=== PATIENT | female | born 1960 ===

== ENCOUNTER 2018-05-26 08:01 | Day surgery (SDC) | payer MEDICAID ==
[2018-05-22 07:55] VITALS: BMI 29.1
[2018-05-26] MEDS ORDERED: Lidocaine 2% MPF (5 ml) Inj ONE (09:25)
[2018-05-26] MEDS ORDERED: ceFAZolin IV 1 gm in Dextrose 2 GM/100 ML BAG IVPB ONE (09:25)
[2018-05-26] MEDS ORDERED: Bupivacaine 0.25% 20 ML INJ IJ ONE (09:26)
[2018-05-26] MEDS ORDERED: Propofol 10 mg/ml 1,000 MG/100 ML VIAL ONE (09:57)
[2018-05-26] MEDS ORDERED: Midazolam 2 MG/2 ML VIAL ONE (09:58)
[2018-05-26] MEDS ORDERED: Oxycodone/Acetaminophen 5/325 mg Tab PO PRN ×2 (11:04)
--- NOTE | 2018-05-26 11:08 | PCM.SURG1 ---
Surgeon's Initial Post Op Note - Surgeon's Notes Surgeon: Dr. Orona, DPM Engineer Steam: Dr. Kendall, PGY1, Dr. Washington, PGY1 Type of Anesthesia: IV Sedation, Local Anesthesia Administered By: Dr. Brennan Pre-Operative Diagnosis: Left plantar fasciitis Operative Findings: see dictation. I: 20 cc 1:1 mixture of 0.25% Marcaine plain and 2% Lidocaine plain, 3 cc platelet rich plasma injection Post-Operative Diagnosis: same Operation Performed: Left plantar fasciotomy and heel spur resection, platelet rich plasma injection to Achilles tendon Specimen/Specimens Removed: none Estimated Blood Loss: EBL {In ML}: 5 Blood Products Given: N/A Drains Used: No Drains Post-Op Condition: Good Date of Surgery/Procedure: 05/26/18 Time of Surgery/Procedure: 11:08
[2018-05-26] MEDS: HYDROmorphone 0.5 mg/0.5 ml ISec IVP PRN ×2 (11:12→11:30)
[2018-05-26 11:33] VITALS: O2SAT 100
[2018-05-26 12:30] VITALS: RESP 16
[2018-05-26 13:34] VITALS: BP 137/78; PULSE 74; TEMP 97.6
--- NOTE | 2018-05-27 16:11 | RAD ---
PROCEDURE: Left Foot Radiographs. HISTORY: s/p left plantar fasciitis and heel spur resection COMPARISON: None available. FINDINGS: BONES: No acute displaced fracture. Tiny plantar enthesophyte. JOINTS: No dislocation. SOFT TISSUES: Mild soft tissue swelling. No evidence of radiopaque foreign body. OTHER FINDINGS: None. IMPRESSION: Mild soft tissue swelling.
== END 2018-05-26 13:30 | disposition home or self-care (01) ==
LOC: C.SDS 08:01
PROVIDERS: ATTEND Podiatrist Foot & Ankle Surgery
DX: M77.32 Calcaneal spur, left foot (principal); M72.2 Plantar fascial fibromatosis
CPT/HCPCS: 28008; 73630; J0690; J1170; J2250; J2405; J3010